=== PATIENT | male | born 1970 | race African-American/Black ===

== ENCOUNTER 2020-04-13 07:30 | Emergency (ER) | payer MEDICAID, OTHER ==
[~2020-04-13] VITALS: Ht 188 cm; Wt 93.4 kg
[2020-04-13 07:56] VITALS: BP 135/77
--- NOTE | 2020-04-13 07:57 | NUR ---
ED Nurse Note: pt stated that he has had right groin pain for 2 months. he does indicate that he lifts weights and doesn't know if it's this is the reason for pain
[2020-04-13] MEDS ORDERED: VOLTAREN100 G1 TP (08:12)
[2020-04-13 08:21] VITALS: BP 127/80
--- NOTE | 2020-04-13 08:21 | NUR ---
ER DISCHARGE NOTE: Patient is cleared to be discharged per ERMD, pt is aox4, on room air, with stable vital signs. pt was given dc and prescription instructions, pt was able to verbalize understanding, pt id band removed. pt is able to ambulate with steady gait. pt took all belongings.
--- NOTE | 2020-04-13 08:57 | Emergency Room Report ---
History of Present Illness General Chief Complaint: Pain Source: Patient Present Illness HPI Patient is a 50-year-old male presents for intermittent right-sided groin pain. Onset of symptoms intermittent symptoms with no change with weightbearing or movement. Patient reports of increased pain with abduction of the hip. Denies any fever. Denies any current use of medications. Prior history of vitiligo. Denies any low back pain. No recent penile discharge or swelling. 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 COVID-19 Screening: Negative COVID-19 COVID-19 Testing Source: nasal Patient History Past Medical History: see triage record Reviewed Nursing Documentation: PMH: Agreed; PSxH: Agreed Nursing Documentation-PMH Past Medical History: No History, Except For Hx Cardiac Problems: No Hx Hypertension: No Hx Pacemaker: No Hx Asthma: No Hx COPD: No Hx Diabetes: No Hx Cancer: No Hx Gastrointestinal Problems: No Hx Dialysis: No Hx Neurological Problems: No - GOUT Hx Cerebrovascular Accident: No Hx Seizures: No Review of Systems All Other Systems: negative except mentioned in HPI Physical Exam Vital Signs Date Time Temp Pulse Resp B/P (MAP) Pulse Ox O2 Delivery O2 Flow Rate FiO2 04/13/20 07:39 97.9 63 17 135/77 (96) 98 Room Air General Appearance: well appearing, no apparent distress, alert, GCS 15 Head: normocephalic, atraumatic ENT: hearing grossly normal, normal voice Neck: full range of motion, supple Respiratory: no respiratory distress, speaking full sentences Cardiovascular #1: normal inspection Gastrointestinal: normal inspection, non tender, soft Musculoskeletal: normal inspection, swelling, normal range of motion, no calf tenderness Neurologic: alert, motor strength/tone normal, credit union manager III-XII nml as tested, normal gait Psychiatric: mood/affect normal Skin: no rash Medical Decision Making Diagnostic Impression: Primary Impression: Hip pain, right ER Course Patient presents for right-sided hip pain. Differential diagnosis include was not limited to arthritis, hernia, adenopathy among others. Patient has a benign exam and does not appear to require any imaging or laboratory testing at this time. Patient does not appear to have any evidence of external trauma. Patient does not have any palpable hernia. Patient was offered laboratory testing which he declined. Patient is advised to follow-up with his primary care physician for recheck. Patient's pain appears to be musculoskeletal nature. He is given pres cription for topical Voltaren. He is advised to return if worse. This medical record is generated with [employer] community engagement manager software. There may be some community engagement manager discrepancies related to use of this software Last Vital Signs Date Time Temp Pulse Resp B/P (MAP) Pulse Ox O2 Delivery O2 Flow Rate FiO2 04/13/20 08:21 98.2 79 16 127/80 99 Room Air Status: improved Disposition: HOME, SELF-CARE Condition: Stable Scripts Diclofenac Sodium (VOLTAREN) 100 Gm Gel..gram. 5 GM TP DAILY for pain, #100 GM Prov: Bentley Stevens MD 04/13/20 Patient Instructions: Hip Pain Additional Instructions: Follow up with your doctor for recheck. Return if worse. Bentley Stevens MD Apr 13, 2020 08:57
== END 2020-04-13 08:21 | disposition home or self-care (01) ==
LOC: EMR 08:03
DX: M25.551 Pain in right hip (principal)
CPT/HCPCS: 99282